=== PATIENT | male | born 1965 | race Caucasian/White ===

== ENCOUNTER 2019-05-24 10:57 | Observation (INO) ==
[~2019-05-24 10:57] MED LIST: LIDOCAINE W/ SODIUM BICARB 0.5 ML SYR SUBD PRN; Lactated Ringers 1,000 ML PRIMARY IV SCH
[2019-05-24] MEDS ORDERED: LIDOCAINE W/ SODIUM BICARB 0.5 ML SYR ONE (11:19)
[2019-05-24] MEDS ORDERED: Lactated Ringers 1,000 ML PRIMARY IV ONE ×2 (11:19→14:24)
[2019-05-24] MEDS ORDERED: fentaNYL Inj 250 MCG/5 ML VIAL ONE (13:05)
[2019-05-24] MEDS ORDERED: MIDAZOLAM HCL 2 MG/2 ML VIAL ONE (13:05)
[2019-05-24] MEDS ORDERED: REMIFENTANIL 1 MG/1 ML IV ONE (13:06)
[2019-05-24] MEDS ORDERED: LIDOCAINE MPF 2% - 5 ML (20 MG/1 ML) ONE (13:08)
[2019-05-24] MEDS ORDERED: OXYMETAZOLINE 0.05% 15 ML NASAL SPRAY ONE (13:09)
[2019-05-24] MEDS ORDERED: Bacitracin Oint 14.2 gm tube 14 APPLIC/14.2 GM TUBE TOPICAL ONE (13:10)
[2019-05-24] MEDS ORDERED: LIDOCAINE HCL 1%/EPI 1:100,000 - 20 ML VIAL ONE (13:10)
[2019-05-24] MEDS ORDERED: ROCURONIUM 10 MG/1 ML - 5 ML VIAL IVP ONE (13:11)
[2019-05-24] MEDS ORDERED: ceFAZolin 1 GM VIAL ONE (13:38)
[2019-05-24] MEDS ORDERED: ceFAZolin Inj 2gm (Premix) 2 GM/50 ML BAG IV ONE (13:41)
[2019-05-24] MEDS ORDERED: ceFAZolin 1 GM VIAL IVP ONE (13:51)
[2019-05-24] MEDS ORDERED: SUGAMMADEX SODIUM 200 MG/2 ML VIAL IV ONE (14:01)
[2019-05-24] MEDS ORDERED: ONDANSETRON 4 MG/2 ML VIAL IVP PRN (14:32)
[2019-05-24] MEDS ORDERED: HYDROcodone-APAP 7.5 MG-325 MG TABLET PO PRN (14:32)
[2019-05-24] MEDS ORDERED: HYDRALAZINE 20 MG/1 ML IVP PRN (17:23)
[2019-05-24] MEDS ORDERED: LORazepam 1 MG TABLET PO ONE (20:39)
[2019-05-25 06:43] VITALS: BP 150/92; RESP 17; TEMP 97.8
[2019-05-25 11:46] VITALS: O2SAT 92
== END 2019-05-25 11:05 | disposition home or self-care (01) ==
LOC: MED/SURG 10:57 → OR 10:57 → OPS 10:58 → MED/SURG 15:15
PROVIDERS: ADMIT Otolaryngology; ATTEND Otolaryngology